=== PATIENT | female | born 1950 | race Caucasian/White ===

== ENCOUNTER 2016-10-17 09:05 | Outpatient (CLI) | payer MEDICARE, MEDICAID | END 2016-10-17 09:20 | disposition home or self-care (01) | LOC: SLEEP 09:05 | PROVIDERS: ATTEND Nurse Practitioner Family | DX: G47.33 Obstructive sleep apnea (adult) (pediatric) (principal) ==

== ENCOUNTER 2016-11-27 20:01 | Outpatient (CLI) | payer MEDICARE, MEDICAID | END 2016-11-28 06:10 | disposition home or self-care (01) | LOC: SLEEP 20:01 | PROVIDERS: ATTEND Nurse Practitioner Family | DX: G47.33 Obstructive sleep apnea (adult) (pediatric) (principal) | CPT/HCPCS: 95811 ==

== ENCOUNTER 2017-05-30 17:40 | Emergency (ER) | payer MEDICARE, MEDICAID ==
[~2017-05-30] VITALS: Ht 167.6 cm; Wt 99.8 kg
--- NOTE | 2017-05-30 18:12 | ED Respiratory ---
General Chief Complaint: Respiratory Problems Stated Complaint: SOB Nursing Triage Note: c/o worsening soa and cough the last 2 weeks. Bronchospastic cough noted. Hx of COPD and 02 dependent. Source: patient History of Present Illness Date Seen by Provider: May 30, 2017 Time Seen by Provider: 17:53 Initial Comments PT ARRIVES VIA POV FROM HOME PT STATES SHE HAS BEEN SICK FOR 2 WEEKS PRODUCTIVE COUGH--WHITE TO YELLOW TO BARON SPUTUM C/O SHORTNESS OF BREATH--PT HAS COPD AND WEARS O2 AT 3L/NC CONTINUOUSLY. USES ALBUTEROL NEBULIZER EVER 4 HOURS-LAST TREATMENT 1500 TODAY-AND BUDESONIDE TWICE A DAY. 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 POWELL FOR NEXT Saturday06/04/17 NO FEVER NO CHEST PAIN HAS SLIGHT SWELLING IN ANKLES/FEET SYMPTOMS NO DIFFERENT TODAY IN ANY WAY HAS NOT SOUGHT CARE UNTIL TODAY HAS NOT TAKEN ANYTHING FOR SYMPTOMS PCP: [facility], USED TO SEE DR. VALLES Allergies and Home Medications Allergies Coded Allergies: No Known Drug Allergies (Unverified , 05/30/17) Constitutional: no symptoms reported EENTM: no symptoms reported Respiratory: see HPI, cough, dyspnea on exertion, orthopnea, phlegm, short of breath, wheezing Cardiovascular: No chest pain, edema, No palpitations, No syncope, No vascular heart diseas Gastrointestinal: no symptoms reported Genitourinary: no symptoms reported Musculoskeletal: no symptoms reported Skin: no symptoms reported Psychiatric/Neurological: No Symptoms Reported Hematologic/Lymphatic: No Symptoms Reported Immunological/Allergic: no symptoms reported Past Seaqidw-Dtqagy-Jomyyf Hx Patient Social History Alcohol Use: Denies Use Recreational Drug Use: No Smoking Status: Former Smoker (2 PPD X 46 YEARS, QUIT 2011) Type Used: Cigarettes (2 PPD X 46 YEARS, QUIT 2011) Recent Foreign Travel: No Contact w/Someone Who Travel: No Recent Infectious Disease Expo: No Surgeries History of Surgeries: Yes ( X 1; OOPHORECTOMY/OVARIAN CYSTECTOMY; BACK SURGERY; CARDIAC CATH-NO INTERVENTION) Surgeries: Cardiac, Section, Gallbladder, Oophorectomy, Orthopedic Respiratory History of Respiratory Disorde: Yes (O2 DEPENDENT AT 3L/NC CONTINUOUSLY) Respiratory Disorders: COPD Cardiovascular History of Cardiac Disorders: No (HAD ABNORMAL EKG BUT CARDIAC CATH WAS NORMAL. PER PT. 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 Genitourinary History of Genitourinary Disor: No Gastrointestinal History of Gastrointestinal Di: No Musculoskeletal History of Musculoskeletal Dis: Yes (BACK SURGERY) Musculoskeletal Disorders: Chronic Back Pain Endocrine History of Endocrine Disorders: Yes Endocrine Disorders: Hypothyroidsim HEENT History of HEENT Disorders: No Cancer History of Cancer: No Psychosocial History of Psychiatric Problem: No Integumentary History of Skin or Integumenta: No Blood Transfusions History of Blood Disorders: No Physical Exam Vital Signs Vital Signs - First Documented 05/30/17 05/30/17 05/30/17 17:54 17:55 19:10 Temp 97.5 Pulse 92 Resp 24 B/P (MAP) 152/84 (106) Pulse Ox 95 O2 Delivery Nasal Cannula O2 Flow Rate 4.00 FiO2 98 Capillary Refill : Less Than 3 Seconds General Appearance: WD/WN, no apparent distress, obese, other (FREQUENT TIGHT COUGH) HEENT: PERRL/EOMI, normal ENT inspection Neck: non-tender, full range of motion, supple, normal inspection Respiratory: no respiratory distress, no accessory muscle use, decreased breath sounds (IN ALL LUNG JESUS), rales (IN BASES), No wheezing Cardiovascular: normal peripheral pulses, regular rate, rhythm, no JVD, no murmur Gastrointestinal: normal bowel sounds, non tender, soft Extremities: normal range of motion, non-tender, normal inspection, no pedal edema, no calf tenderness, normal capillary refill 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, no motor/sensory deficits, alert, normal mood/affect, oriented x 3 Skin: normal color, warm/dry Focused Exam Evaluation Lactate Level Laboratory Tests 05/30/17 18:50: Lactic Acid Level 1.48 Lactic Acid Level Laboratory Tests Test 05/30/17 18:50 Lactic Acid Level 1.48 MMOL/L (0.50-2.00) Progress/Results/Core Measures Suspected Sepsis Recent Fever Within 48 Hours: No Infection Criteria Present: Suspected New Infection New/Unexplained Altered Menta: No Sepsis Screen: Possible Sepsis Risk Sepsis Diagnosis: SIRS Temperature:97.5 Pulse: 92 Respiratory Rate: 24 Laboratory Tests 05/30/17 18:50: White Blood Count 6.5 Blood Pressure 152 /84 Mean: 106 Laboratory Tests 05/30/17 18:50: Lactic Acid Level 1.48 Laboratory Tests 05/30/17 18:50: Creatinine 0.80, INR Comment 1.0, Platelet Count 197, Total Bilirubin 0.7 Results/Orders Lab Results Laboratory Tests Test 05/30/17 18:50 Range/Units White Blood Count 6.5 4.3-11.0 10^3/uL Red Blood Count 3.99 L 4.35-5.85 10^6/uL Hemoglobin 12.1 11.5-16.0 G/DL Hematocrit 37 35-52 % Mean Corpuscular Volume 94 80-99 FL Mean Corpuscular Hemoglobin 30 25-34 PG Mean Corpuscular Hemoglobin Concent 32 32-36 G/DL Red Cell Distribution Width 13.3 10.0-14.5 % Platelet Count 197 130-400 10^3/uL Mean Platelet Volume 11.9 H 7.4-10.4 FL Neutrophils (%) (Auto) 73 42-75 % Lymphocytes (%) (Auto) 17 12-44 % Monocytes (%) (Auto) 9 0-12 % Eosinophils (%) (Auto) 1 0-10 % Basophils (%) (Auto) 1 0-10 % Neutrophils # (Auto) 4.8 1.8-7.8 X 10^3 Lymphocytes # (Auto) 1.1 1.0-4.0 X 10^3 Monocytes # (Auto) 0.6 0.0-1.0 X 10^3 Eosinophils # (Auto) 0.1 0.0-0.3 10^3/uL Basophils # (Auto) 0.0 0.0-0.1 10^3/uL Prothrombin Time 13.1 12.2-14.7 SEC INR Comment 1.0 0.8-1.4 Activated Partial Thromboplast Time 37 H 24-35 SEC Sodium Level 140 135-145 MMOL/L Potassium Level 3.7 3.6-5.0 MMOL/L Chloride Level 98 98-107 MMOL/L Carbon Dioxide Level 29 21-32 MMOL/L Anion Gap 13 5-14 MMOL/L Blood Urea Nitrogen 5 L 7-18 MG/DL Creatinine 0.80 0.60-1.30 MG/DL Estimat Glomerular Filtration Rate > 60 BUN/Creatinine Ratio 6 Glucose Level 103 70-105 MG/DL Lactic Acid Level 1.48 0.50-2.00 MMOL/L Calcium Level 9.9 8.5-10.1 MG/DL Magnesium Level 2.4 1.8-2.4 MG/DL Total Bilirubin 0.7 0.1-1.0 MG/DL Aspartate Amino Transf (AST/SGOT) 19 5-34 U/L Alanine Aminotransferase (ALT/SGPT) 14 0-55 U/L Alkaline Phosphatase 79 40-136 U/L Troponin I < 0.30 <0.30 NG/ML B-Type Natriuretic Peptide 24.2 <100.0 PG/ML Total Protein 7.9 6.4-8.2 GM/DL Albumin 4.1 3.2-4.5 GM/DL TSH Evans Testing 0.36 0.35-4.94 UIU/ML My Orders Orders - TAYO TABARES DO Saline Lock/Iv-Start (05/30/17 18:) Ekg Tracing (05/30/17 18:) O2 (05/30/17 18:) Monitor-Rhythm Ecg Trace Only (05/30/17 18:) BNP (05/30/17 18:) Cbc With Automated Diff (05/30/17 18:) Comprehensive Metabolic Panel (05/30/17 18:) Lactic Acid Analyzer (05/30/17 18:) Magnesium (05/30/17:) Protime With Inr (05/30/17 18:) Partial Thromboplastin Time (05/30/17 18:) Thyroid Analyzer (05/30/17 18:) Troponin I (05/30/17 18:) Blood Culture (05/30/17 18:) Influenza A And B Antigens (05/30/17 18:) Chest Pa/Lat (2 View) (05/30/17 18:) Rt Request For Service (05/30/17 18:) Albuterol/Ipra Inhalation Soln (Duoneb I (05/30/17:) Dexamethasone Injection (Decadron Inject (05/30/17 18:) Svn Sm Volume Nebulizer Rt-Rfs (05/30/17 18:03) Sputum Culture (05/30/17 18:13) Methylprednisolone Sod Succ (Solu-Medrol (05/30/17 18:15) Albuterol Pre-Mix Nebs (Rt) (Proventil (05/30/17 18:59) Albuterol Pre-Mix Nebs (Rt) (Proventil (05/30/17 19:03) Svn Sm Volume Nebulizer Rt-Rfs (05/30/17 19:03) Albuterol Pre-Mix Nebs (Rt) (Proventil (05/30/17 19:07) Svn Sm Volume Nebulizer Rt-Rfs (05/30/17 19:07) Medications Given in ED Current Medications Medications Dose Ordered Sig/Oriana Route Start Time Stop Time Status Last Admin Dose Admin Albuterol Sulfate 2.5 mg STK-MED ONCE .ROUTE 05/30/17 18:59 05/30/17 19:03 DC 05/30/17 19:04 2.5 MG Albuterol/ Ipratropium 3 ml ONCE ONCE INH 05/30/17 18:15 05/30/17 18:16 DC 05/30/17 18:51 3 ML Dexamethasone Sodium Phosphate 20 mg ONCE ONCE IH 05/30/17 18:15 05/30/17 18:16 DC 05/30/17 18:51 20 MG Methylprednisolone Sodium Succinate 125 mg ONCE ONCE IVP 05/30/17 18:15 05/30/17 18:22 DC 05/30/17 18:55 125 MG Vital Signs/I&O Vital Sign - Last 12Hours 05/30/17 05/30/17 05/30/17 05/30/17 17:54 17:55 18:52 19:04 Temp 97.5 Pulse 92 Resp 24 B/P (MAP) 152/84 (106) Pulse Ox 95 95 96 96 O2 Delivery Nasal Cannula Nasal Cannula Nasal Cannula O2 Flow Rate 4.00 4.00 4.00 4.00 05/30/17 19:10 O2 Delivery Nasal Cannula O2 Flow Rate 4.00 FiO2 98 Capillary Refill : Less Than 3 Seconds Blood Pressure Mean: 106 Progress Note : Progress Note GAVE DUONEB + DECADRON NEB TREATMENT--PT STATES IT MADE HER FEEL MORE SHORT OF BREATH, PT NOW WHEEZING SWITCHED TO PLAIN ALBUTEROL NEB TREATMENT AND PT STATES SHE IS FEELING MUCH BETTER FEELS MUCH BETTER AT DISMISSAL. INCREASED AERATION AND DECREASED WHEEZING ECG Initial ECG Impression Date: May 30, 2017 Initial ECG Impression Time: 18:31 Initial ECG Rate: 90 Initial ECG Rhythm: Normal Sinus (INCOMPLETE RBBB AND LAFB) Initial ECG Comparisson: No Previous ECG Available Diagnostic Imaging Comments CXR--NO ACUTE PROCESS, COPD, PER RADIOLOGIST REPORT @ 1853 Reviewed: Reviewed by Me Departure Impression Impression: Primary Impression: COPD (chronic obstructive pulmonary disease) with acute bronchitis Disposition: HOME, SELF-CARE Condition: Improved Departure-Patient Inst. Referrals: APPLE POWELL,LOCAL PHYSICIAN (PCP) Primary Care Physician Patient Instructions: Acute Bronchitis, Adult (DC), COPD Including Emphysema ( DC) Add. Discharge Instructions: CONTINUE YOUR CURRENT MEDICATIONS PRESCRIBED KEEP YOUR APPOINTMENT WITH DR. POWELL NEXT WEEK All discharge instructions reviewed with patient and/or family. Voiced understanding. Scripts Benzonatate (Tessalon Perle) 100 Mg Capsule 1-2 TAB PO TID for Cough, #30 CAP Prov: TAYO TABARES DO 05/30/17 Guaifenesin/Dextromethorphan (Mucinex Dm ER 1,200-60 mg Tab) 1 Each Tbmp.12hr 1 EACH PO BID for 10 Days, #20 EA Prov: TAYO TABARES DO 05/30/17 Methylprednisolone (Medrol) 4 Mg Tab.ds.pk 4 MG PO UD, #1 PKG Prov: TAYO TABARES DO 05/30/17 Cefdinir (Cefdinir) 300 Mg Capsule 300 MG PO BID for FOR INFECTION, #20 CAP Prov: TAYO TABRAES DO 05/30/17 TAYO TABARES DO May 30, 2017 18:12
[2017-05-30] MEDS ORDERED: DEXAMETHASONE 4 MG/ML SDV (DECADRON) IH ONE (18:15)
[2017-05-30] MEDS ORDERED: RT-ALBUTEROL/IPRATROPIUM 3 ML (DUONEB) VIAL INH ONE (18:15)
[2017-05-30] MEDS ORDERED: methylPREDNISolone 125 MG (Solu-MEDROL) VIAL IVP ONE (18:15)
--- NOTE | 2017-05-30 18:35 | Diagnostic Imaging Report ---
INDICATION: COPD. Short of breath. FINDINGS: PA and lateral chest shows the heart size and vascularity to be normal. There is obstructive airway disease with no mass or infiltrate seen. There is no pleural effusion. IMPRESSION: COPD. No acute abnormality is seen. Dictated by: Dictated on workstation # [id number]
[2017-05-30] MEDS ORDERED: RT-ALBUTEROL SULF 2.5 MG/3 ML PRE-MIX VIAL ONE (18:59)
[2017-05-30] MEDS ORDERED: RT-ALBUTEROL SULF 2.5 MG/3 ML PRE-MIX VIAL INH STA ×2 (19:03→19:07)
[2017-05-30 19:04] LABS: BASOPHILS % (AUTO) 1 % (0-10); EOSINOPHILS # (AUTO) 0.1 10^3/uL (0.0-0.3); EOSINOPHILS % (AUTO) 1 % (0-10); HEMATOCRIT 37 % (35-52); HEMOGLOBIN 12.1 G/DL (11.5-16.0); LYMPHOCYTES # (AUTO) 1.1 X 10^3 (1.0-4.0); LYMPHOCYTES % (AUTO) 17 % (12-44); MEAN CORPUSCULAR HEMOGLOBIN 30 PG (25-34); MEAN CORPUSCULAR HGB CONC 32 G/DL (32-36); MEAN CORPUSCULAR VOLUME 94 FL (80-99); MEAN PLATELET VOLUME 11.9 FL (7.4-10.4); MONOCYTES # (AUTO) 0.6 X 10^3 (0.0-1.0); MONOCYTES % (AUTO) 9 % (0-12); NEUTROPHILS # (AUTO) 4.8 X 10^3 (1.8-7.8); NEUTROPHILS % (AUTO) 73 % (42-75); PLATELET COUNT 197 10^3/uL (130-400); RED BLOOD COUNT 3.99 10^6/uL (4.35-5.85); RED CELL DISTRIBUTION WIDTH 13.3 % (10.0-14.5); WHITE BLOOD COUNT 6.5 10^3/uL (4.3-11.0)
[2017-05-30 19:15] LABS: PROTHROMBIN TIME PATIENT 13.1 SEC (12.2-14.7)
[2017-05-30 19:24] LABS: ALANINE AMINOTRANSFERASE 14 U/L (0-55); ALBUMIN 4.1 GM/DL (3.2-4.5); ALKALINE PHOSPHATASE 79 U/L (40-136); BILIRUBIN,TOTAL 0.7 MG/DL (0.1-1.0); BUN/CREATININE RATIO 6; CALCIUM 9.9 MG/DL (8.5-10.1); CARBON DIOXIDE 29 MMOL/L (21-32); CHLORIDE 98 MMOL/L (98-107); GFR ESTIMATED > 60; GLUCOSE 103 MG/DL (70-105); MAGNESIUM 2.4 MG/DL (1.8-2.4); POTASSIUM 3.7 MMOL/L (3.6-5.0); SODIUM 140 MMOL/L (135-145); TOTAL PROTEIN 7.9 GM/DL (6.4-8.2)
[2017-05-30 19:43] LABS: TSH (THYROID ANALYZER) 0.36 UIU/ML (0.35-4.94)
[2017-05-30] MEDS ORDERED: METH4TAB PO (19:59)
[2017-05-30] MEDS ORDERED: GUAI1TBM19 PO (19:59)
[2017-05-30] MEDS ORDERED: CEFD300C3 PO (19:59)
[2017-05-30] MEDS ORDERED: BENZ-13 PO (19:59)
[2017-05-30] MEDS ORDERED: cefTRIAXone INJECTION 1,000 MG in NS (IVPB) 50 ML IV ONE (20:00)
[2017-05-30] MEDS ORDERED: BENZONATATE 100 MG (TESSALON) CAPSULE PO ONE (20:19)
[2017-05-30] MEDS ORDERED: BENZONATATE 100 MG (TESSALON) CAPSULE PO SCH (21:00)
[2017-05-30 21:40] VITALS: BP 141/72
== END 2017-05-30 21:40 | disposition home or self-care (01) ==
LOC: EDUNIT# 17:40 → ER 17:43
DX: J44.9 Chronic obstructive pulmonary disease, unspecified (principal); E03.9 Hypothyroidism, unspecified; Z87.59 Personal history of other complications of pregnancy, childbirth and the puerperium; Z90.721 Acquired absence of ovaries, unilateral
CPT/HCPCS: 36415; 71046; 80053; 83605; 83735; 83880; 84443; 84484; 85025; 85610; 85730; 87040; 87070; 87205; 87804; 93005; 93041; 94640; 96365; 96375

== ENCOUNTER → 2017-06-19 | Outpatient (CLI) | payer MEDICARE, MEDICAID ==
[~2017-06-19] MED LIST: BENZ-13 PO; CEFD300C3 PO; GUAI1TBM19 PO; METH4TAB PO; RT-ALBUTEROL SULF 2.5 MG/3 ML PRE-MIX VIAL INH STA
--- NOTE | 2017-06-19 08:45 | Diagnostic Imaging Report ---
PROCEDURE: CT chest without contrast. TECHNIQUE: Multiple contiguous axial images were obtained through the chest without the use of intravenous contrast. INDICATION: Dyspnea. FINDINGS: There is no evidence of pulmonary mass or consolidation. Linear atelectasis and/or scarring is noted within the lingula and right middle lobe. In addition, note is made of calcified granuloma within the superior segment of the left lower lobe. There is moderate atherosclerotic calcification along the aortic arch. No pathologically enlarged adenopathy is seen in the thorax. There is no significant pleural or pericardial fluid. There is also atherosclerotic calcification at the level of the aortic valve and within the coronary arteries. There is mild hiatal hernia. Note is made of an approximately 1 cm nodule projecting along the anterior aspect of the upper stomach which may represent serosal nodule. IMPRESSION: No acute abnormality is seen in the chest. There maybe slight linear atelectasis and/or scarring in the lingula and right middle lobe with granulomatous residua present. Note is made of an approximately 1 cm nodule along the serosal surface of the upper stomach, anteriorly. This may be difficult to evaluate endoscopically. Consideration could be given to CT scan of the abdomen with IV and oral contrast. Dictated by: Dictated on workstation # [id number]
== END ==
LOC: RT 08:08
PROVIDERS: ATTEND Nurse Practitioner Family
DX: J44.9 Chronic obstructive pulmonary disease, unspecified (principal); R09.02 Hypoxemia; G47.34 Idiopathic sleep related nonobstructive alveolar hypoventilation; J30.2 Other seasonal allergic rhinitis
CPT/HCPCS: 71250; 94060; 94640; 94726; 94729

== ENCOUNTER → 2017-07-16 | Outpatient (CLI) | payer MEDICARE, MEDICAID ==
[~2017-07-16] MED LIST changes: +BARIUM SUSPENSION 2.1% (VANILLA SILQ) 450 ML PO ONE; +CATHETER FLUSH 10 ML SYR IV PRN; +IOHEXOL 350 MG/ML 100 ML (OMNIPAQUE 350) VIAL IV ONE; +NS 250 ML (IVPB) BAG IV ONE; -RT-ALBUTEROL SULF 2.5 MG/3 ML PRE-MIX VIAL INH STA
[2017-07-16 11:46] LABS: BUN/CREATININE RATIO 18; CREATININE SERUM 0.84 MG/DL (0.60-1.30); GFR ESTIMATED > 60
--- NOTE | 2017-07-16 12:42 | Diagnostic Imaging Report ---
PROCEDURE: CT abdomen with contrast only. TECHNIQUE: Multiple contiguous axial images were obtained through the abdomen after the administration of intravenous contrast. INDICATION: Abnormal abdominal findings seen on the lower sections of the thoracic CT dated 06/19/2017. FINDINGS: Similar to the previous study, there is an approximately 1 cm soft tissue nodule along the anterior surface of the stomach which may represent a leiomyoma. No other mass is seen in the abdomen and there is no evidence of pathologically enlarged adenopathy. The liver and spleen demonstrate no focal lesion; however, there is mild splenomegaly. There is no pancreatic, adrenal gland, or renal lesion seen. No free fluid is identified. IMPRESSION: A 1 cm nodule appears to arise from the serosal surface of the upper stomach. This may represent a leiomyoma. This could be further assessed with a short-term followup study in 3-4 months to document stability. Dictated by: Dictated on workstation # [id number]
== END ==
LOC: RAD 11:00
PROVIDERS: ATTEND Registered Nurse
DX: R19.00 Intra-abdominal and pelvic swelling, mass and lump, unspecified site (principal)
CPT/HCPCS: 36415; 74160; 82565; 84520

== ENCOUNTER → 2018-05-15 | Outpatient (CLI) | payer MEDICARE, MEDICAID ==
[~2018-05-15] MED LIST changes: -BARIUM SUSPENSION 2.1% (VANILLA SILQ) 450 ML PO ONE; -BENZ-13 PO; +BENZ100C18 PO; -CATHETER FLUSH 10 ML SYR IV PRN; -IOHEXOL 350 MG/ML 100 ML (OMNIPAQUE 350) VIAL IV ONE; -NS 250 ML (IVPB) BAG IV ONE
--- NOTE | 2018-05-15 11:44 | Diagnostic Imaging Report ---
INDICATION: COPD, tobacco abuse COMPARISON: 05/30/2017 FINDINGS: Frontal and lateral views of the chest demonstrate hyperinflation compatible with COPD. There is no focal infiltrate. The heart is slightly enlarged but stable. There is no pneumothorax. The osseous structures are age-appropriate. IMPRESSION: COPD without infiltrate. Dictated by: Dictated on workstation # [id number]
== END ==
LOC: RAD 10:06
PROVIDERS: ATTEND Nurse Practitioner Family
DX: J44.9 Chronic obstructive pulmonary disease, unspecified (principal); J30.2 Other seasonal allergic rhinitis; Z87.891 Personal history of nicotine dependence
CPT/HCPCS: 71046

== ENCOUNTER → 2018-06-24 | Outpatient (CLI) | payer MEDICARE, MEDICAID ==
--- NOTE | 2018-06-24 16:45 | Diagnostic Imaging Report ---
EXAM: CT CHEST SCREENING WO INDICATION: Greater than 46 pack year smoking history. Quit smoking 7 years ago. COMPARISON: None. FINDINGS: Centrilobular emphysema. Calcified granulomas in both lungs. No suspicious pulmonary nodules or mass. No endobronchial lesions. Mild scarring in the anterior right middle lobe and lingula. No pleural effusion or pneumothorax. Moderate atherosclerotic calcifications including coronary and aortic. Normal heart size. No pericardial effusion. No mediastinal, hilar or axillary lymphadenopathy. No acute osseous findings. Visualized upper abdominal contents are unremarkable. IMPRESSION: 1. No suspicious pulmonary nodule or mass. Recommend continue annual screening with low dose chest CT in 12 months. 2. Centrilobular emphysema. 3. Moderate atherosclerotic calcifications including coronary and aortic. LungRads category: 1. Modifier: S. Please note that the low-dose technique of this chest CT is of non-diagnostic quality. This study is only intended for lung cancer screening of high risk patients. Dictated by: Dictated on workstation # [id number]
== END ==
LOC: RAD 12:31
PROVIDERS: ATTEND Nurse Practitioner Family
DX: Z12.2 Encounter for screening for malignant neoplasm of respiratory organs (principal); J43.2 Centrilobular emphysema; I25.10 Atherosclerotic heart disease of native coronary artery without angina pectoris; I70.0 Atherosclerosis of aorta; J30.2 Other seasonal allergic rhinitis; Z87.891 Personal history of nicotine dependence

== ENCOUNTER 2018-10-02 05:38 | Outpatient (CLI) | payer MEDICARE, MEDICAID ==
[~2018-10-02] VITALS: Ht 167.6 cm; Wt 104.3 kg
[2018-10-02] MEDS ORDERED: NAPR-1033 PO (12:14)
[2018-10-02] MEDS ORDERED: CETI10TA20 PO (12:14)
[2018-10-02] MEDS ORDERED: FLAX100031 PO (12:14)
[2018-10-02] MEDS ORDERED: LEVO112T55 PO (12:14)
[2018-10-02] MEDS ORDERED: FLUT1BLS IH (12:50)
== END 2018-10-02 12:51 | disposition home or self-care (01) ==
LOC: PREOP 05:38
PROVIDERS: ATTEND Specialist
DX: Z01.818 Encounter for other preprocedural examination (principal)

== ENCOUNTER 2018-10-22 06:40 | Outpatient (CLI) | payer MEDICARE, MEDICAID ==
[~2018-10-22] VITALS: Ht 167.6 cm; Wt 104.3 kg
[~2018-10-22 06:40] MED LIST changes: +CETI10TA20 PO; +FLAX100031 PO; +FLUT1BLS IH; +LEVO112T55 PO; +NAPR-1033 PO
== END 2018-10-22 14:07 | disposition home or self-care (01) ==
LOC: PREOP 06:40
PROVIDERS: ATTEND Specialist
DX: Z01.818 Encounter for other preprocedural examination (principal)

== ENCOUNTER 2018-10-24 09:05 | Day surgery (SDC) | payer MEDICARE, MEDICAID ==
[~2018-10-24] VITALS: Ht 167.6 cm; Wt 104.3 kg
[2018-10-24 09:10] VITALS: BP 129/70
[2018-10-24] MEDS ORDERED: MOXIFLOXACIN OPHTH SOLN 5 MG/ML 0.3 ML SYRINGE OP ONE (09:15)
[2018-10-24] MEDS ORDERED: POVIDONE (BETADINE) OPHTH SOLN 5% 30 ML OP ONE (09:15)
[2018-10-24] MEDS ORDERED: LIDOCAINE PF 1% 2 ML AMP IR PRN (09:15)
[2018-10-24] MEDS ORDERED: TIMOLOL MALEATE 0.5% 5 ML (TIMOPTIC) BTL OU PRN (09:15)
[2018-10-24] MEDS: TETRACAINE 0.5% OPHTH SOLN 4 ML BTL (SINGLE DOSE ONLY) OU PRN ×4 (09:23→09:56)
[2018-10-24] MEDS: PHENYLEPHRINE 10% OPHTH (NEO-SYN) 5 ML BTL OU SCH ×3 (09:34→09:56)
[2018-10-24] MEDS: CYCLOPENTOLATE 1% (CYCLOGYL) 2 ML DROPS OP SCH ×3 (09:34→09:56)
--- NOTE | 2018-10-24 10:12 | Ophthalmologist Pre-Op Note ---
Pre-Operative Progress Note H&P Reviewed The H&P was reviewed, patient examined and no changes noted. Date H&P Reviewed: Oct 24, 2018 Time H&P Reviewed: 10:12 Pre-Op Dx Cataract, Left Eye SO CRANE MD Oct 24, 2018 10:12
[2018-10-24] MEDS ORDERED: MIDAZOLAM 2 MG/2 ML (VERSED) VIAL ONE (10:14)
--- NOTE | 2018-10-24 10:34 | Ophthalmology Operative Report ---
Cataract removal/placement IOL PREOPERATIVE DIAGNOSIS: Cataract Left Eye POSTOPERATIVE DIAGNOSIS: Cataract Left Eye PROCEDURE: Cataract removal and placement of posterior chamber implant, left eye SURGEON: Meet Crane ANESTHESIA: Topical with sedation COMPLICATIONS: None ESTIMATED BLOOD LOSS: Minimal DESCRIPTION OF PROCEDURE: After proper informed consent was obtained, the patient, a 68 female, was taken to the Operating Room and the left eye was anesthetized with tetracaine. The left eye was then prepped and draped in the usual manner. A wire lid speculum was placed. A paracentesis was made at the left hand position. Preservative free lidocaine was injected into the anterior chamber followed by viscoelastic. A clear corneal incision was made in the temporal position. A capsulorrhexis was preformed and the central nuclear and cortical material were removed. The posterior capsule was polished and an Elie 16.5 [id number] was placed into the capsular bag. The residual viscoelastic was aspirated and balanced saline solution was injected into the anterior chamber. Moxifloxacin was injected into the anterior chamber. The wound was checked and found to be water tight. The patient tolerated the procedure well without complications. MEET CRANE MD Oct 24, 2018 10:34
--- NOTE | 2018-10-24 10:45 | Anesthesia-General Post-Op ---
MAC Patient Condition Mental Status/LOC: Same as Preop Cardiovascular: Satisfactory Nausea/Vomiting: Absent Respiratory: Satisfactory Pain: Controlled Complications: Absent Post Op Complications Complications None Follow Up Care/Instructions Patient Instructions None needed. Anesthesiology Discharge Order Discharge Order Patient is doing well, no complaints, stable vital signs, no apparent adverse anesthesia problems. No complications reported per nursing. LISA SHOEMAKER CRNA Oct 24, 2018 10:45
[2018-10-24 10:46] VITALS: BP 132/75
[2018-10-24] MEDS ORDERED: acetaZOLAMIDE ER 500 MG CAP (DIAMOX SEQUELS) PO ONE (11:00)
--- OUTSIDE RECORDS SUMMARY | 2018-10-24 18:51 | XMS REPORT | Clinical Summary ---
Author Author [facility] Organization [facility] Address Unknown Phone Unavailable Care Team Providers Care Cafeteria Supervisor Name Role Phone PCP Unavailable Allergies Not on File Current Medications Not on file Active Problems Not on file Social History Tobacco Use Types Packs/Day Years Used Date Never Assessed Sex Assigned at Date Recorded Not on file Last Filed Vital Signs Not on file Plan of Treatment Not on file Results Not on filefrom Last 3 Months
--- OUTSIDE RECORDS SUMMARY | 2018-10-24 18:51 | XMS REPORT | Continuity of Care Document ---
Author Organization Unknown Address Unknown Allergies Active Description Code Type Severity Reaction Onset Reported/Identified Relationship to Patient Clinical Status Yes No Known Drug Allergies [id number] Drug Allergy Unknown N/A 05/30/2017 Yes cyclobenzaprine [id number] Drug Allergy Unknown N/A 10/02/2018 Medications There is no data. Problems Date Dx Coded Attending Type Code Diagnosis Diagnosed By 10/17/2016 CORY TREVIÑO Ot G47.33 OBSTRUCTIVE SLEEP APNEA (ADULT) (PEDIATR 10/17/2016 CORY TREVIÑO Ot G47.33 OBSTRUCTIVE SLEEP APNEA (ADULT) (PEDIATR 10/17/2016 CORY TREVIÑO GEM CUTTER Ot G47.33 OBSTRUCTIVE SLEEP APNEA (ADULT) (PEDIATR 11/26/2016 ILDA, LUCIUS J DRAFTING LAYOUT WORKER Ot G47.33 OBSTRUCTIVE SLEEP APNEA (ADULT) (PEDIATR 11/27/2016 ILDA, LUCIUS J DRAFTING LAYOUT WORKER Ot G47.33 OBSTRUCTIVE SLEEP APNEA (ADULT) (PEDIATR 11/27/2016 ILDA, LUCIUS J DRAFTING LAYOUT WORKER Ot G47.33 OBSTRUCTIVE SLEEP APNEA (ADULT) (PEDIATR 11/28/2016 ILDA, LUCIUS J DRAFTING LAYOUT WORKER Ot G47.33 OBSTRUCTIVE SLEEP APNEA (ADULT) (PEDIATR 11/28/2016 ILDA, LUCIUS J DRAFTING LAYOUT WORKER Ot G47.33 OBSTRUCTIVE SLEEP APNEA (ADULT) (PEDIATR 05/30/2017 TAYO TABARES DO Ot E03.9 HYPOTHYROIDISM, UNSPECIFIED 05/30/2017 TAYO TABARES DO Ot J44.9 CHRONIC OBSTRUCTIVE PULMONARY DISEASE, U 05/30/2017 TAYO TABARES DO Ot R06.02 SHORTNESS OF BREATH 05/30/2017 TAYO TABARES DO Ot Z87.59 PERSONAL HISTORY OF COMP OF PREG, CHLDBR 05/30/2017 TAYO TABARES DO Ot Z90.721 ACQUIRED ABSENCE OF OVARIES, UNILATERAL 07/10/2017 JING WATSON APRN Ot G47.34 IDIO SLEEP RELATED NONOBSTRUCTIVE ALVEOL 07/10/2017 JING WATSON APRN Ot J30.2 OTHER SEASONAL ALLERGIC RHINITIS 07/10/2017 JING WATSON LIQUOR DEPARTMENT MANAGER Ot J44.9 CHRONIC OBSTRUCTIVE PULMONARY DISEASE, U 07/10/2017 JING WATSON APRN Ot R09.02 HYPOXEMIA 07/17/2017 LYNDSEY MARTÍNEZP Ot R19.00 INTRA-ABD AND PELVIC SWELLING, MASS AND 07/19/2017 JING WATSON APRN Ot G47.34 IDIO SLEEP RELATED NONOBSTRUCTIVE ALVEOL 07/19/2017 JING WATSON APRN Ot J30.2 OTHER SEASONAL ALLERGIC RHINITIS 07/19/2017 JING WATSON APRN Ot J44.9 CHRONIC OBSTRUCTIVE PULMONARY DISEASE, U 07/19/2017 JING WATSON APRN Ot R09.02 HYPOXEMIA 08/07/2017 LYNDSEY MARTÍNEZ Ot R19.00 INTRA-ABD AND PELVIC SWELLING, MASS AND 08/09/2017 TAYO TABARES DO Ot E03.9 HYPOTHYROIDISM, UNSPECIFIED 08/09/2017 TREVON TABARES DOA Fabian Ot J44.9 CHRONIC OBSTRUCTIVE PULMONARY DISEASE, U 08/09/2017 TAYO TABARES DO Ot R06.02 SHORTNESS OF BREATH 08/09/2017 TREVON TABARES DOA Fabian Ot Z87.59 PERSONAL HISTORY OF COMP OF PREG, CHLDBR 08/09/2017 TREVON TABARES DOA Fabian Ot Z90.721 ACQUIRED ABSENCE OF OVARIES, UNILATERAL 08/16/2017 LYNDSEY MARTÍNEZ Ot R19.00 INTRA-ABD AND PELVIC SWELLING, MASS AND 05/15/2018 JING WATSON APRN Ot G47.34 IDIO SLEEP RELATED NONOBSTRUCTIVE ALVEOL 05/15/2018 JING WATSON APRN Ot J30.2 OTHER SEASONAL ALLERGIC RHINITIS 05/15/2018 JING WATSON APRN Ot J44.9 CHRONIC OBSTRUCTIVE PULMONARY DISEASE, U 05/15/2018 JING WATSON APRN Ot R09.02 HYPOXEMIA 05/15/2018 LYNDSEY MARTÍNEZ Ot R19.00 INTRA-ABD AND PELVIC SWELLING, MASS AND 05/15/2018 JING WATSON LIQUOR DEPARTMENT MANAGER Ot J30.2 OTHER SEASONAL ALLERGIC RHINITIS 05/15/2018 JING WATSON LIQUOR DEPARTMENT MANAGER Ot J44.9 CHRONIC OBSTRUCTIVE PULMONARY DISEASE, U 05/15/2018 JING WATSON LIQUOR DEPARTMENT MANAGER Ot Z87.891 PERSONAL HISTORY OF NICOTINE DEPENDENCE 06/06/2018 JING WATSON LIQUOR DEPARTMENT MANAGER Ot J30.2 OTHER SEASONAL ALLERGIC RHINITIS 06/06/2018 JING WATSON LIQUOR DEPARTMENT MANAGER Ot J44.9 CHRONIC OBSTRUCTIVE PULMONARY DISEASE, U 06/06/2018 JING WATSON LIQUOR DEPARTMENT MANAGER Ot Z87.891 PERSONAL HISTORY OF NICOTINE DEPENDENCE 06/19/2018 JING WATSON LIQUOR DEPARTMENT MANAGER Ot G47.34 IDIO SLEEP RELATED NONOBSTRUCTIVE ALVEOL 06/19/2018 JING WATSON LIQUOR DEPARTMENT MANAGER Ot J30.2 OTHER SEASONAL ALLERGIC RHINITIS 06/19/2018 JING WATSON LIQUOR DEPARTMENT MANAGER Ot J44.9 CHRONIC OBSTRUCTIVE PULMONARY DISEASE, U 06/19/2018 JING WATSON LIQUOR DEPARTMENT MANAGER Ot R09.02 HYPOXEMIA 06/19/2018 LYNDSEY MARTÍNEZ Ot R19.00 INTRA-ABD AND PELVIC SWELLING, MASS AND 06/19/2018 JING WATSON LIQUOR DEPARTMENT MANAGER Ot Z87.891 PERSONAL HISTORY OF NICOTINE DEPENDENCE 06/19/2018 JING WATSON LIQUOR DEPARTMENT MANAGER Ot J30.2 OTHER SEASONAL ALLERGIC RHINITIS 06/19/2018 JING WATSON LIQUOR DEPARTMENT MANAGER Ot J44.9 CHRONIC OBSTRUCTIVE PULMONARY DISEASE, U 06/19/2018 JING WATSON LIQUOR DEPARTMENT MANAGER Ot Z87.891 PERSONAL HISTORY OF NICOTINE DEPENDENCE 06/19/2018 JING WATSON LIQUOR DEPARTMENT MANAGER Ot Z87.891 PERSONAL HISTORY OF NICOTINE DEPENDENCE 06/19/2018 JING WATSON LIQUOR DEPARTMENT MANAGER Ot Z87.891 PERSONAL HISTORY OF NICOTINE DEPENDENCE 06/25/2018 JING WATSON LIQUOR DEPARTMENT MANAGER Ot I25.10 ATHSCL HEART DISEASE OF [place] CORONARY 06/25/2018 JING WATSON LIQUOR DEPARTMENT MANAGER Ot I70.0 ATHEROSCLEROSIS OF [place] 06/25/2018 JING WATSON LIQUOR DEPARTMENT MANAGER Ot J30.2 OTHER SEASONAL ALLERGIC RHINITIS 06/25/2018 JING WATSON LIQUOR DEPARTMENT MANAGER Ot J43.2 CENTRILOBULAR EMPHYSEMA 06/25/2018 JING WATSON LIQUOR DEPARTMENT MANAGER Ot Z12.2 ENCNTR SCREEN FOR MALIGNANT NEOPLASM OF 06/25/2018 JING WATSON LIQUOR DEPARTMENT MANAGER Ot Z87.891 PERSONAL HISTORY OF NICOTINE DEPENDENCE 07/15/2018 JING WATSON LIQUOR DEPARTMENT MANAGER Ot I25.10 ATHSCL HEART DISEASE OF [place] CORONARY 07/15/2018 JING WATSON LIQUOR DEPARTMENT MANAGER Ot I70.0 ATHEROSCLEROSIS OF [place] 07/15/2018 JING WATSON LIQUOR DEPARTMENT MANAGER Ot J30.2 OTHER SEASONAL ALLERGIC RHINITIS 07/15/2018 JING WATSON LIQUOR DEPARTMENT MANAGER Ot J43.2 CENTRILOBULAR EMPHYSEMA 07/15/2018 JING WATSON LIQUOR DEPARTMENT MANAGER Ot Z12.2 ENCNTR SCREEN FOR MALIGNANT NEOPLASM OF 07/15/2018 JING WATSON LIQUOR DEPARTMENT MANAGER Ot Z87.891 PERSONAL HISTORY OF NICOTINE DEPENDENCE 10/02/2018 SO CRANE MD Ot Z01.818 ENCOUNTER FOR OTHER PREPROCEDURAL EXAMIN 10/03/2018 SO CRANE MD Ot E03.9 HYPOTHYROIDISM, UNSPECIFIED 10/03/2018 SO CRANE MD Ot E66.9 OBESITY, UNSPECIFIED 10/03/2018 SO CRANE MD Ot H25.11 AGE-RELATED NUCLEAR CATARACT, RIGHT EYE 10/03/2018 SO CRANE MD Ot J44.9 CHRONIC OBSTRUCTIVE PULMONARY DISEASE, U 10/03/2018 SO CRANE MD Ot Z68.37 BODY MASS INDEX (BMI) 37.0-37.9, ADULT 10/03/2018 SO CRANE MD Ot 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 Results Test Result Range Sputum Gram stain - 05/30/17 18:45 GRAM STAIN SPUTUM AND MIXED BACTERIAL TANYA NRG Bacterial sputum culture - 05/30/17 18:45 FREE TEXT EXTERNAL ISOLATE SENT TO REFERENCE LAB 06/02/17 NRG QUANTITY OF GROWTH Moderate Growth NRG Bacterial sputum culture [id number] Complete blood count (CBC) with automated white blood cell (WBC) differential - 05/30/17 18:50 Blood leukocytes automated count (number/volume) 6.5 10*3/uL 4.3-11.0 Blood erythrocytes automated count (number/volume) 3.99 10*6/uL 4.35-5.85 Venous blood hemoglobin measurement (mass/volume) 12.1 g/dL 11.5-16.0 Blood hematocrit (volume fraction) 37 % 35-52 Automated erythrocyte mean corpuscular volume 94 [foz_us] 80-99 Automated erythrocyte mean corpuscular hemoglobin (mass per erythrocyte) 30 pg 25-34 Automated erythrocyte mean corpuscular hemoglobin concentration measurement (mass/volume) 32 g/dL 32-36 Automated erythrocyte distribution width ratio 13.3 % 10.0- 14.5 Automated blood platelet count (count/volume) 197 10*3/uL 130-400 Automated blood platelet mean volume measurement 11.9 [foz_us] 7.4-10.4 Automated blood neutrophils/100 leukocytes 73 % 42-75 Automated blood lymphocytes/100 leukocytes 17 % 12-44 Blood monocytes/100 leukocytes 9 % 0-12 Automated blood eosinophils/100 leukocytes 1 % 0-10 Automated blood basophils/100 leukocytes 1 % 0-10 Blood neutrophils automated count (number/volume) 4.8 10*3 1.8-7.8 Blood lymphocytes automated count (number/volume) 1.1 10*3 1.0-4.0 Blood monocytes automated count (number/volume) 0.6 10*3 0.0- 1.0 Automated eosinophil count 0.1 10*3/uL 0.0-0.3 Automated blood basophil count (count/volume) 0.0 10*3/uL 0.0-0.1 Blood lactic acid measurement (moles/volume) - 05/30/17 18:50 Blood lactic acid measurement (moles/volume) 1.48 mmol/L 0.50- 2.00 PT panel in platelet poor plasma by coagulation assay - 05/30/17 18:50 Prothrombin time (PT) in platelet poor plasma by coagulation assay 13.1 s 12.2-14.7 INR in platelet poor plasma or blood by coagulation assay 1.0 0.8-1.4 Activated partial thromboplastin time (aPTT) in platelet poor plasma bycoagulation assay - 05/30/17 18:50 Activated partial thromboplastin time (aPTT) in platelet poor plasma bycoagulation assay 37 s 24-35 Comprehensive metabolic panel - 05/30/17 18:50 Serum or plasma sodium measurement (moles/volume) 140 mmol/L 135-145 Serum or plasma potassium measurement (moles/volume) 3.7 mmol/L 3.6-5.0 Serum or plasma chloride measurement (moles/volume) 98 mmol/L 98-107 Carbon dioxide 29 mmol/L 21-32 Serum or plasma anion gap determination (moles/volume) 13 mmol/L 5-14 Serum or plasma urea nitrogen measurement (mass/volume) 5 mg/dL 7-18 Serum or plasma creatinine measurement (mass/volume) 0.80 mg/dL 0.60-1.30 Serum or plasma urea nitrogen/creatinine mass ratio 6 NRG Serum or plasma creatinine measurement with calculation of estimated glomerular filtration rate > NRG Serum or plasma glucose measurement (mass/volume) 103 mg/dL 70-105 Serum or plasma calcium measurement (mass/volume) 9.9 mg/dL 8.5-10.1 Serum or plasma total bilirubin measurement (mass/volume) 0.7 mg/dL 0.1-1.0 Serum or plasma alkaline phosphatase measurement (enzymatic activity/volume) 79 U/L 40-136 Serum or plasma aspartate aminotransferase measurement (enzymatic activity/volume) 19 U/L 5-34 Serum or plasma alanine aminotransferase measurement (enzymatic activity/volume) 14 U/L 0-55 Serum or plasma protein measurement (mass/volume) 7.9 g/dL 6.4-8.2 Serum or plasma albumin measurement (mass/volume) 4.1 g/dL 3.2-4.5 Magnesium - 05/30/17 18:50 Magnesium 2.4 mg/dL 1.8-2.4 Serum or plasma lithium measurement (moles/volume) - 05/30/17 18:50 BNP level 24.2 pg/mL <100.0 Serum or plasma troponin i.cardiac measurement (mass/volume) - 05/30/17 18:50 Serum or plasma troponin i.cardiac measurement (mass/volume) < ng/mL <0.30 Serum or plasma thyrotropin measurement by detection limit <=0.05 miu/l (units/volume) - 05/30/17 18:50 Serum or plasma thyrotropin measurement by detection limit <=0.05 miu/l (units/volume) 0.36 u[iU]/mL 0.35-4.94 Bacterial blood culture - 05/30/17 18:50 Bacterial blood culture NG NRG Bacterial blood culture - 05/30/17 19:12 Bacterial blood culture NG NRG Influenza virus A and B antigen detection - 05/30/17 19:41 FLU RESULT NEGATIVE FOR INFLUENZA A AND B ANTIGENS BY IA NRG [id number] - 07/16/17 11:10 Serum or plasma urea nitrogen measurement (mass/volume) 15 mg/dL 7-18 Serum or plasma creatinine measurement (mass/volume) 0.84 mg/dL 0.60-1.30 Serum or plasma urea nitrogen/creatinine mass ratio 18 NRG Serum or plasma creatinine measurement with calculation of estimated glomerular filtration rate > NRG Encounters ACCT No. Visit Date/Time Discharge Status Pt. Type Provider Facility Loc./Unit Complaint [id number] 08/27/2018 09:40:00 08/27/2018 23:59:59 CLS Outpatient [facility]AR[facility] [id number] 10/22/2018 06:40:00 10/22/2018 14:07:00 DIS Outpatient SO CRANE MD [facility] PREOP CATARACT LEFT [id number] 10/03/2018 09:05:00 10/03/2018 10:30:00 DIS Outpatient SO CRANE MD [facility] SDC CATARACT LEFT EYE [id number] 10/02/2018 05:38:00 10/02/2018 12:51:00 DIS Outpatient SO CRANE MD [facility] PREOP CATARACT LEFT EYE [id number] 08/11/2018 15:30:00 08/11/2018 23:59:59 CLS Preadmit APPLE POWELL DO [facility] RT COPD, HISTORY OF SMOKING, HYPOXEMIA [id number] 07/11/2018 12:45:00 07/11/2018 23:59:59 CLS Preadmit APPLE POWELL DO [facility] RAD COPD, HISTORY OF SMOKING, HYPOXEMIA [id number] 06/24/2018 12:31:00 06/24/2018 23:59:59 CLS Outpatient JING WATSON LIQUOR DEPARTMENT MANAGER [facility] RAD COPD [id number] 05/15/2018 10:06:00 05/15/2018 23:59:59 CLS Outpatient JING WATSON LIQUOR DEPARTMENT MANAGER [facility] RAD Z87.891,J44.9 [id number] 07/16/2017 11:00:00 07/16/2017 23:59:59 CLS Outpatient TANYA LYNDSEY Mcfarland GEM CUTTER [facility] RAD INTRA-ABDOMINAL MASS R19.0 [id number] 06/19/2017 08:08:00 06/19/2017 23:59:59 CLS Outpatient JING WATSON LIQUOR DEPARTMENT MANAGER [facility] RT J44.9 COPD [id number] 06/05/2017 13:52:00 06/05/2017 23:59:59 CLS Preadmit JING WATSON APRN [facility] RAD J44.9 COPD [id number] 05/30/2017 17:43:00 05/30/2017 21:40:00 DIS Emergency RAYSHAWN DOTAYO K [facility] ER SOB [id number] 11/27/2016 20:01:00 11/28/2016 06:10:00 DIS Outpatient LUCIUS GONSALES DRAFTING 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
== END 2018-10-24 10:46 | disposition home or self-care (01) ==
LOC: SDC 09:05
PROVIDERS: ATTEND Specialist
DX: H25.12 Age-related nuclear cataract, left eye (principal); E03.9 Hypothyroidism, unspecified; J44.9 Chronic obstructive pulmonary disease, unspecified; Z79.899 Other long term (current) drug therapy; Z80.1 Family history of malignant neoplasm of trachea, bronchus and lung; Z87.891 Personal history of nicotine dependence

== ENCOUNTER → 2019-09-18 | Outpatient (CLI) | payer MEDICARE, MEDICAID ==
[~2019-09-18] MED LIST changes: -CETI10TA20 PO; +CETI10TA21 PO
--- NOTE | 2019-09-18 16:37 | Diagnostic Imaging Report ---
CT Lung Screening INDICATION: [id number] smoking history, cessation 8 years ago. TECHNIQUE: Noncontrast, low-dose CT imaging performed according to the lung cancer screening protocol. Auto Exposure Controls were utilize during the CT exam to meet ALARA standards for radiation dose reduction. COMPARISON: Screening study of 06/24/2018. FINDINGS: Some very slight curvilinear zones of subpleural scarring and/or partial atelectasis unchanged from prior. No dominant or suspicious lung mass. No acute consolidating infiltrate. No effusion or pneumothorax. There is no evidence for adenopathy. No acute chest wall pathology. Atherosclerotic aortic calcifications are nonaneurysmal. IMPRESSION: Stable chronic benign findings. Continued low-dose CT screening follow-up in one year's time recommended. 2A - Benign appearance or behavior. Solid nodule(s): <6mm OR new <4mm. Continue annual screening with LDCT in 12 months. Dictated by: Dictated on workstation # [id number]
== END ==
LOC: RAD 13:45
PROVIDERS: ATTEND Nurse Practitioner Family
DX: Z12.2 Encounter for screening for malignant neoplasm of respiratory organs (principal); Z87.891 Personal history of nicotine dependence

== ENCOUNTER → 2020-09-22 | Outpatient (CLI) | payer MEDICARE, MEDICAID ==
[~2020-09-22] MED LIST changes: -CETI10TA21 PO; +CETI10TA49 PO
--- NOTE | 2020-09-22 11:09 | Diagnostic Imaging Report ---
CT Lung Screening INDICATION: 69 pack-year smoking history TECHNIQUE: Noncontrast, low-dose CT imaging performed according to the lung cancer screening protocol. Auto Exposure Controls were utilize during the CT exam to meet ALARA standards for radiation dose reduction. COMPARISON: 09/18/2019 FINDINGS: The previous CT low-dose lung cancer screening exam of 09/18/2019 failed to show any dominant or suspicious lung mass that would suggest malignancy. On this exam, there is still no discrete mass identified to suggest malignancy. The chronic pulmonary changes primarily involving the right lung base seen on the prior study are again evident and do not appear to have changed significantly. The prior study also showed a wispy area of increased density in the right upper lobe. That parenchymal abnormality has resolved and may have been secondary to a small focus of mild pneumonia/atelectasis. There is no evidence for failure, pneumonia or of pleural effusion at this time. The heart size is at the upper limits of normal but stable when compared to the prior study. Extensive coronary artery calcifications are again noted. The aorta is not abnormally dilated. There is no obvious mediastinal or hilar adenopathy. The thyroid gland was partially obscured by streak artifact. There is no definite breast mass visualized. The sections through the upper abdomen failed to show any sign of an acute abnormality. As noted on the prior study, the gallbladder is surgically absent. The bone windows show no sign of a fracture or of a destructive lesion. IMPRESSION: 1. There is still no parenchymal lung mass to suggest malignancy. A follow-up low-dose lung cancer screening exam in one year would be recommended for continued evaluation. 2. The chronic pulmonary changes seen previously are again evident and have not progressed. There is no sign of an acute cardiopulmonary abnormality. 3. There is borderline cardiomegaly and coronary artery disease. LUNG-RADS CATEGORY:1 MODIFIER: OTHER SIGNIFICANT FINDINGS: Dictated by: Dictated on workstation # [id number]
== END ==
LOC: RAD 09:53
PROVIDERS: ATTEND Nurse Practitioner Family
DX: Z12.2 Encounter for screening for malignant neoplasm of respiratory organs (principal); Z87.891 Personal history of nicotine dependence
CPT/HCPCS: 71271